=== PATIENT | male | born 1985 | race African-American/Black ===

== ENCOUNTER 2020-07-09 08:49 | Emergency (ER) | payer OTHER, BC ==
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
--- NOTE | 2020-07-09 10:24 | CT ---
Indication: Injury Technique: CT examination of the cervical spine was performed. Imaging was acquired in the axial plane. Contrast was administered. Sagittal and coronal reformatted imaging was performed. Comparison: None Findings: There is straightening of the spine which is usually due to muscle spasm or positioning. There is no visible acute fracture, dislocation or destructive process. No significant appearing degenerative changes. The lung apices appear normal. 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 These are not associated with acute trauma. This is air-filled and maximally measures 1 point 4 centimeters. Impression: 1. Straightening which is usually due to muscle spasm or positioning. 2. No visible acute fracture, dislocation or destructive process. No significant arthritic change. 3. Incidental soft tissue finding not related to acute trauma as discussed above Please note that all CT scans at this facility use dose modulation, iterative reconstruction, and/or weight-based dosing when appropriate to reduce radiation dose to as low as reasonably achievable. Dictated by Paulo Poe MD @ Jul 09 2020 10:16AM Signed by Dr. Paulo Poe @ Jul 09 2020 10:23AM
--- NOTE | 2020-07-09 10:41 | CR ---
Indication: Injury Technique: A total of three views of the right shoulder were acquired. Comparison: None Findings: Bones: Alignment is normal. No fractures or bone lesions. Joint spaces: Unremarkable. Soft tissues: Unremarkable. Impression: Normal examination of the right shoulder. Dictated by Paulo Poe MD @ Jul 09 2020 10:37AM Signed by Dr. Paulo Poe @ Jul 09 2020 10:39AM
== END 2020-07-09 11:26 | disposition home or self-care (01) ==
LOC: MW.ED 08:49
DX: S16.1XXA Strain of muscle, fascia and tendon at neck level, initial encounter (principal); S40.011A Contusion of right shoulder, initial encounter; M62.81 Muscle weakness (generalized); V58.5XXA Driver of pick-up truck or van injured in noncollision transport accident in traffic accident, initial encounter
CPT/HCPCS: 72125; 72125-26; 73030-26-RT; 73030-RT; 99282; 99284-25